=== PATIENT | female | born 1970 | race Two or more races ===

== ENCOUNTER → 2024-10-10 | Outpatient (CLI) | payer OTHER, BC, SELFPAY ==
--- NOTE | 2024-10-10 14:37 | XR_ITS ---
Examination: Foot, left, 3 views Technique: AP, oblique, lateral views foot, 3 views Date and time of exam: October 10, 2024 1451 hours INDICATIONS: Patient fell 3 days ago with injury to the foot, foot pain. FINDINGS: Acute fracture at the base of the fifth metatarsal, 1.5 mm offset at the fracture site Prominent osteopenia Moderate bunion deformity IMPRESSION: Acute fracture base fifth metatarsal
== END | disposition home or self-care (01) ==
LOC: CDIM 14:20
PROVIDERS: PCP Physician Assistant; Referring Provider Physician Assistant; Visit Provider Physician Assistant
DX: S92.352A Displaced fracture of fifth metatarsal bone, left foot, initial encounter for closed fracture (principal); W19.XXXA Unspecified fall, initial encounter
CPT/HCPCS: 73630